=== PATIENT | female | born 1970 | race Caucasian/White ===

== ENCOUNTER 2018-01-01 11:25 | Outpatient (CLI) | payer OTHER | END 2018-01-01 11:26 | disposition home or self-care (01) | LOC: BICMAMMO 11:25 | PROVIDERS: ATTEND Obstetrics & Gynecology | DX: Z12.31 Encounter for screening mammogram for malignant neoplasm of breast (principal); Z80.3 Family history of malignant neoplasm of breast | CPT/HCPCS: 77063; 77067 ==

== ENCOUNTER 2025-08-25 15:41 | Outpatient (CLI) | payer OTHER | END 2025-08-25 15:42 | disposition home or self-care (01) | LOC: SCSRAD 15:41 | PROVIDERS: ATTEND Family Medicine | DX: S99.911A Unspecified injury of right ankle, initial encounter (principal); M25.471 Effusion, right ankle; M79.89 Other specified soft tissue disorders ==